=== PATIENT | female | born 2005 | race Caucasian/White ===

== ENCOUNTER → 2025-01-03 12:32 | Outpatient (CLI) | payer OTHER, SELFPAY ==
[2025-01-03 13:42] LABS: Pregnancy Test Urine Negative (Negative)
[2025-01-03 15:06] LABS: Urine N gonorrhoeae NOT DETECTED
[2025-01-03 15:08] LABS: Urine Chlamydia NOT DETECTED
== END ==
PROVIDERS: Family Provider Family Medicine; PCP Family Medicine; Visit Provider Physician Assistant Surgical
DX: R30.0 Dysuria (principal); R10.2 Pelvic and perineal pain; R35.0 Frequency of micturition
CPT/HCPCS: 81025; 87086; 87210; 87491; 87591

== ENCOUNTER → 2025-02-19 14:24 | Outpatient (CLI) | payer OTHER, SELFPAY ==
[2025-02-19 15:27] LABS: Influenza A - CEPHEID Flu A NEGATIVE (NEGATIVE); Influenza B - CEPHEID Flu B NEGATIVE (NEGATIVE); Respiratory Syncytial Virus Negative (Negative)
[2025-02-19 15:36] LABS: COVID-19 CEPHEID 4-PLEX PCR Negative (Negative)
== END ==
PROVIDERS: Family Provider Family Medicine; PCP Family Medicine; Visit Provider Nurse Practitioner Family
DX: J02.9 Acute pharyngitis, unspecified (principal); Z20.828 Contact with and (suspected) exposure to other viral communicable diseases
CPT/HCPCS: 0241U; 87070